=== PATIENT | female | born 1945 | race Caucasian/White ===

== ENCOUNTER 2017-01-24 19:47 | Emergency (ER) | payer OTHER ==
--- NOTE | 2017-01-24 20:14 | CPEKG ---
Heart Rate: 86 RR Interval: 698 P-R Interval: 144 QRSD Interval: 84 QT Interval: 392 QTC Interval: 469 P [place]: 30 QRS [place]: -55 T Wave [place]: 39 EKG Severity - ABNORMAL ECG - EKG Impression: SINUS RHYTHM EKG Impression: PROBABLE LEFT ATRIAL ABNORMALITY EKG Impression: LEFT ANTERIOR FASCICULAR BLOCK EKG Impression: ABNRM R PROG, CONSIDER ASMI OR LEAD PLACEMENT Electronically Signed By: Erik Osman 24-Jan-2017 20:37:56
[2017-01-24 20:33] VITALS: TEMP 98.2
--- NOTE | 2017-01-24 20:35 | EDPHY ---
H & P <Dulce Holman - Last Filed: 01/24/17 22:21> Smoking Status: Former smoker <Erik Osman S - Last Filed: 01/25/17 06:32> Time Seen by Provider: 01/24/17 20:05 HPI/ROS: CHIEF COMPLAINT: Chest discomfort, palpitations HISTORY OF PRESENT ILLNESS: Patient had her 1st episode of symptoms this afternoon at 4:30 p.m. while she was praying. She was in various positions including bending over but was not positional. She describes which she says is a "swishing feeling" in her chest which radiated to her neck and head on both sides. She did not have chest pain or dizziness or vertigo or headache, no lightheadedness or syncope. After 30 minutes it resolved and then she went to go see a movie with her sister. In the theater at 7:15 p.m. it started again and the identical symptoms lasted again for 30 minutes. She put her hand on a carotid pulse and felt alternating strong and weak pulses. 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 Currently she feels like symptoms are almost gone. REVIEW OF SYSTEMS: Eye: no change in vision ENT: no sore throat Cardiac: no chest pain or syncope Pulmonary: no cough or SOB Abdomen: no vomiting, diarrhea, abdominal pain Musculoskeletal: no back pain or neck pain Skin: no rash Neuro: no headache, never off balance, not weak or numb in extremities, no trouble with speech or thought process Constitutional: no fever : no urinary symptoms A comprehensive 10 point review of systems is otherwise negative aside from elements mentioned in the history of present illness. 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 Eyes: No scleral icterus. ENT, Mouth: Normal mucous membranes. Respiratory: Normal respiratory effort, breath sounds equal, lungs are clear to auscultation. Cardiovascular: Regular rate and rhythm. No murmur and no carotid bruit. Gastrointestinal: Abdomen is soft and non tender. Neurological: Alert and oriented x3. Normally conversant. Face symmetric, normal movement and sensation in all extremities. Skin: Warm and dry, no rashes. Musculoskeletal: No peripheral edema and no joint swelling. Psychiatric: Not agitated. 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 Think her symptoms are unlikely to be ischemic in nature, would be atypical for ACS. She does not have a murmur currently and I think acute valvular failure or acute valvular incompetence is unlikely, especially in light of her symptoms improving and no murmur auscultated and no signs CHF. With her feeling like she has swishing feeling or which she describes is like an abnormal heart valve in her chest radiating to her neck possibility of dissection is considered. CT angiography to evaluate is discussed and consented. I think PE is unlikely. 2051: [facility]; PCP appointment with Dr. Shivam Orosco, tomorrow at 1540. 2107: Rhythm strips from visits so far reviewed and only showed a unifocal PVC , occasional. Malignant rhythm considered, I think unlikely. She had a sense of alternating strong and weak heart beat/pulse with second episode but not lightheaded or dizzy, no syncope. At this time patient really thinks it's probably GI which certainly is possible. She would like to go home and followup up tomorrow as arranged which I think is reasonable. (Erik Osman) Constitutional: Initial Vital Signs Heart Rate 99 01/24/17 19:48 Respiratory Rate 18 01/24/17 19:48 Blood Pressure 151/80 H 01/24/17 19:48 O2 Sat (%) 94 01/24/17 19:48 O2 Delivery Mode Room Air Allergies/Adverse Reactions: erythromycin base [Erythromycin Base] Allergy (Mild, Verified 05/24/10 11:31) NAUSEA, VOMITING, ABDOMINAL PAIN POLLEN Allergy (Mild, Uncoded 05/24/10 11:31) HAYFEVER Home Medications: Medication Instructions Recorded Levothyroxine 02/22/09 Lisinopril [Zestril 20 mg (*)] 20 mg PO DAILY #30 tab 02/22/09 PRILOSEC 02/22/09 Medical Decision Making - Diagnostics Imaging: I viewed and interpreted images myself <Dulce Holman - Last Filed: 01/24/17 22:21> <Erik Osman - Last Filed: 01/25/17 06:32> - Diagnostics EKG Interpretation: 12-lead EKG interpreted by me; official reading is in trace master. My interpretation is sinus rhythm rate 86 with left anterior fascicular block and late anterior RS transition (Erik Osman) Imaging Results: Imaging Impressions Chest/Thorax CTA 01/24/17 20:38 Impression: 1. Normal-appearing thoracic aorta without evidence of aneurysm or dissection. 2. No significant abnormality seen within the chest. Findings discussed with Dr. Leonides Holman at 21:44 hour, 01/24/2017. CTA of thorax/chest; no evidence of dissection or other pathology. Results were discussed with staff radiologist Dr. Jesus Huizar. (Dulce Holman ) ED Course/Re-evaluation: I took over care of this patient at 9:30 p.m.. We are awaiting a CT angiogram of her chest to evaluate for possible dissection. This study was unremarkable. I re-evaluated the patient at 10:15 p.m.. She is resting comfortably at this time. She is asymptomatic. Results of her CT angiogram of her chest discussed with her and her friend. She feels comfortable going home and I feel she is safe for discharge. Follow up with her [place] primary care physician for re- evaluation and echocardiogram were discussed with her. Return to emergency department precautions reviewed. All of her questions were answered. She was discharged in good condition. (Dulce Holman) Differential Diagnosis: Differential considered including but not limited to pulmonary embolism, pneumonia, esophageal, acute coronary syndrome, aortic dissection, valvular abnormality, other gastrointestinal. (Erik Osman) - Data Points Laboratory Results: Laboratory Results 01/24/17 20:05 01/24/17 20:05 01/24/17 01/24/17 01/24/17 20:29 20:05 20:05 WBC 6.80 10^3/uL 10^3/uL (3.80-9.50) RBC 4.65 10^6/uL 10^6/uL (4.18-5.33) Hgb 14.4 g/dL g/dL (12.6-16.3) POC Hgb 13.6 gm/dL gm/dL (12.6-16.3) Hct 41.6 % % (38.0-47.0) POC Hct 40 % % (38-47) MCV 89.5 fL fL (81.5-99.8) MCH 31.0 pg pg (27.9-34.1) MCHC 34.6 g/dL g/dL (32.4-36.7) RDW 13.4 % % (11.5-15.2) Plt Count 328 10^3/uL 10^3/uL (150-400) MPV 10.1 fL fL (8.7-11.7) Neut % (Auto) 43.6 % % (39.3-74.2) Lymph % (Auto) 42.2 % % (15.0-45.0) [place] % (Auto) 10.4 % % (4.5-13.0) Eos % (Auto) 2.2 % % (0.6-7.6) Baso % (Auto) 1.3 % % (0.3-1.7) Nucleat RBC Rel Count 0.0 % % (0.0-0.2) Absolute Neuts (auto) 2.96 10^3/uL 10^3/uL (1.70-6.50) Absolute Lymphs (auto) 2.87 10^3/uL 10^3/uL (1.00-3.00) Absolute Monos (auto) 0.71 10^3/uL 10^3/uL (0.30-0.80) Absolute Eos (auto) 0.15 10^3/uL 10^3/uL (0.03-0.40) Absolute Basos (auto) 0.09 10^3/uL 10^3/uL (0.02-0.10) Absolute Nucleated RBC 0.00 10^3/uL 10^3/uL (0-0.01) Immature Gran % 0.3 % % (0.0-1.1) Immature Gran # 0.02 10^3/uL 10^3/uL (0.00-0.10) POC Sodium 145 mEq/L H mEq/L (134-144) Sodium 143 mEq/L mEq/L (134-144) POC Potassium 3.7 mEq/L mEq/L (3.3-5.0) Potassium 3.8 mEq/L mEq/L (3.5-5.2) POC Chloride 109 mEq/L mEq/L (97-110) Chloride 105 mEq/L mEq/L (97-110) Carbon Dioxide 25 mEq/l mEq/l (22-31) Anion Gap 13 mEq/L mEq/L (8-16) POC BUN 20 mg/dL mg/dL (7-23) BUN 19 mg/dL mg/dL (7-23) Creatinine 1.0 mg/dL mg/dL (0.6-1.0) POC Creatinine 1.1 mg/dL H mg/dL (0.6-1.0) Estimated GFR 55 Glucose 110 mg/dL H mg/dL (70-100) POC Glucose 124 mg/dL H mg/dL (70-100) Calcium 9.7 mg/dL mg/dL (8.5-10.4) Troponin I < 0.012 ng/mL ng/mL (0.000-0.034) Point of Care Test Results: 01/24/17 20:29 POC Sodium 145 H POC Potassium 3.7 POC Chloride 109 POC BUN 20 POC Creatinine 1.1 H POC Glucose 124 H Departure <Dulce Holman B - Last Filed: 01/24/17 22:21> <Erik Osman - Last Filed: 01/25/17 06:32> - Departure Disposition: Home, Routine, Self-Care Clinical Impression: Palpitation Condition: Good Instructions: Palpitations (ED) Additional Instructions: Read and follow provided instructions. Follow-up with your primary care physician in 1-2 days for re-evaluation. You should get an echocardiogram as discussed. Return to the emergency department for worsening symptoms or other serious concerns. Referrals: XOCHITL PEREZ [Other] - 01/25/17 3:30 pm (You have an appointment with your primary care doctor in [place] Dr. Márquez at 3:30 p.m. tomorrow. Discussed referral for echocardiogram.)
[2017-01-24 20:36] LABS: % IMMATURE GRANULYOCYTES 0.3 % (0.0-1.1); ABSOLUTE IMMATURE GRANULOCYTES 0.02 10^3/uL (0.00-0.10); ADD DIFF? NO; ADD MORPH? NO; ADD SCAN? NO; ATYPICAL LYMPHOCYTE FLAG 0 (0-99); FRAGMENT RBC FLAG 0 (0-99); HEMATOCRIT 41.6 % (38.0-47.0); HEMOGLOBIN 14.4 g/dL (12.6-16.3); LEFT SHIFT FLG 0 (0-99); LIPEMIA HEMOLYSIS FLAG 90 (0-99); MEAN CELL HEMOGLOBIN CONCENTR. 34.6 g/dL (32.4-36.7); MEAN CELL VOLUME 89.5 fL (81.5-99.8); MEAN PLATELET VOLUME 10.1 fL (8.7-11.7); PLATELET CLUMPS FLAG 10 (0-99); PLATELET COUNT 328 10^3/uL (150-400); RED BLOOD CELL COUNT 4.65 10^6/uL (4.18-5.33); RED CELL DISTRIBUTION WIDTH 13.4 % (11.5-15.2)
[2017-01-24 20:45] LABS: ANION GAP 13 mEq/L (8-16); CALCIUM 9.7 mg/dL (8.5-10.4); CARBON DIOXIDE 25 mEq/l (22-31); CHLORIDE 105 mEq/L (97-110); GLOMERULAR FILTRATION RATE 55; GLUCOSE 110 mg/dL (70-100); POTASSIUM 3.8 mEq/L (3.5-5.2); SODIUM 143 mEq/L (134-144)
[2017-01-24 20:57] LABS: TROPONIN I < 0.012 ng/mL (0.000-0.034)
[2017-01-24] MEDS ORDERED: IOPAMIDOL (ISOVUE 370) 100 ML BTL IV ONE (21:01)
[2017-01-24 21:44] VITALS: RESP 16
[2017-01-24 22:27] VITALS: BP 119/74; PULSE 82; O2SAT 95
== END 2017-01-24 22:27 | disposition home or self-care (01) ==
DX: R00.2 Palpitations (principal); I10 Essential (primary) hypertension
CPT/HCPCS: 71275; 93005; 99285; Q9967; 82947-QW